=== PATIENT | male | born 1970 | race Caucasian/White ===

== ENCOUNTER 2016-03-29 17:25 | Observation (INO) | payer SELFPAY ==
[~2016-03-29] VITALS: Ht 154.9 cm; Wt 59.0 kg
[~2016-03-29 17:25] MED LIST: VENTAER INH
[2016-03-29 17:32] VITALS: BP 128/64; PULSE 87; RESP 22; TEMP 98.8; O2SAT 98
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
[2016-03-29] MEDS ORDERED: IOHEXOL 350 MG/ML 10 ML VIAL (for RAD DIAG) IV ONE (18:32)
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
[2016-03-29 19:14] VITALS: BP 143/72; PULSE 91; RESP 18; O2SAT 99
[2016-03-29 19:29] LABS: BASOPHIL % 0.3 % (0.0-2.0); EOSINOPHIL # 0.1 TH/MM3 (0-0.4); HEMO FLAGS DIFF FINAL; LYMPH % 29.5 % (9.0-44.0); LYMPHOCYTE # 1.9 TH/MM3 (1.0-4.8); MEAN CELL VOLUME 106.5 FL (80.0-100.0); MEAN CORPUSCULAR HEMOGLOBIN 37.5 PG (27.0-34.0); MEAN CORPUSCULAR HGB CONC 35.3 % (32.0-36.0); NEUT % 60.2 % (16.0-70.0); PLATELET COUNT 256 TH/MM3 (150-450); RED BLOOD COUNT 3.94 MIL/MM3 (4.50-5.90); WHITE BLOOD COUNT 6.6 TH/MM3 (4.0-11.0)
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
[2016-03-29 19:36] LABS: APTT (PATIENT) 27.8 SEC (24.3-30.1); INTERNATIONAL NORMALIZED RATIO 0.9 RATIO; PROTHROMBIN TIME - PATIENT 10.4 SEC (9.8-11.6)
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
[2016-03-29 19:55] LABS: ANION GAP 13 MEQ/L (5-15); AST (GOT) 88 U/L (15-37); BLOOD UREA NITROGEN 5 MG/DL (7-18); CHLORIDE 106 MEQ/L (98-107); GLOMERULAR FILTRATION RATE 106 ML/MIN (>89); POTASSIUM 3.3 MEQ/L (3.5-5.1); SODIUM (NA) 142 MEQ/L (136-145)
[2016-03-29 19:58] LABS: ALKALINE PHOSPHATASE 38 U/L (45-117); ALT (GPT) 71 U/L (12-78); TOTAL BILIRUBIN ADULT 0.4 MG/DL (0.2-1.0)
[2016-03-29] MEDS ORDERED: ACETAMINOPHEN 325 MG TAB PO ONE (20:00)
[2016-03-29] MEDS ORDERED: POTASSIUM CHLORIDE 20 MEQ CONTROLLED RELEASE TAB PO ONE (20:15)
[2016-03-29] MEDS: SODIUM CHLORIDE 0.9% FLUSH 5 ML FLUSH FLUSH SCH (20:22)
[2016-03-29] MEDS ORDERED: SODIUM CHLORIDE 0.9% FLUSH 5 ML FLUSH FLUSH PRN (20:30)
[2016-03-29] MEDS ORDERED: THIAMINE HCL 100 MG TAB PO ONE (20:30)
[2016-03-29] MEDS ORDERED: NALOXONE HCL 0.4 MG/ML AMP IV PRN (20:30)
[2016-03-29] MEDS ORDERED: KETOROLAC TROMETHAMINE 30 MG/ML (IVP) VIAL IV PUSH ONE (21:30)
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
[2016-03-30] VITALS: BP 150/76; PULSE 88; RESP 18; TEMP 98.4; O2SAT 98
[2016-03-30 01:00] VITALS: PULSE 94
[2016-03-30 04:30] VITALS: BP 119/71; PULSE 78; RESP 18; TEMP 98.7; O2SAT 97
[2016-03-30 05:39] LABS: HEMATOCRIT 39.4 % (39.0-51.0); MEAN CELL VOLUME 107.6 FL (80.0-100.0); MEAN CORPUSCULAR HGB CONC 35.3 % (32.0-36.0); PLATELET COUNT 225 TH/MM3 (150-450); RED BLOOD COUNT 3.66 MIL/MM3 (4.50-5.90); RED CELL DISTRIBUTION WIDTH 11.9 % (11.6-17.2); WHITE BLOOD COUNT 6.7 TH/MM3 (4.0-11.0)
[2016-03-30 05:50] LABS: HEMO FLAGS AUTO DIFF
[2016-03-30 06:21] LABS: POTASSIUM 4.3 MEQ/L (3.5-5.1)
[2016-03-30 07:38] LABS: EOSINOPHILS 1 % (0-4); NEUTROPHIL # MANUAL DIFF 3.4 TH/MM3 (1.8-7.7); POLYS (SEG NEUTROPHILS) 50 % (16-70); WBC DIFF SAMPLE 100
[2016-03-30 07:39] LABS: PLATELET ESTIMATE SMEAR NORMAL (NORMAL); PLATELET MORPHOLOGY NORMAL (NORMAL); SCAN/DIFF FINAL DIFF MANUAL
[2016-03-30 07:48] VITALS: BP 126/78; PULSE 92; RESP 16; TEMP 97.8; O2SAT 94
[2016-03-30 08:00] VITALS: PULSE 79
[2016-03-30] MEDS ORDERED: INFLUENZA VIRUS VACCINE (QUADRIVALENT) 0.5 ML SYR IM ONE (09:00)
[2016-03-30] MEDS ORDERED: THIAMINE HCL 100 MG TAB PO SCH (09:00)
[2016-03-30] MEDS: SODIUM CHLORIDE 0.9% FLUSH 5 ML FLUSH FLUSH SCH (09:05)
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
[2016-03-30] MEDS ORDERED: VENTAER INH (09:27)
--- NOTE | 2016-03-30 09:27 | HHI.DCPOC ---
Discharge Care Plan Diagnosis: (1) Closed head injury with brief loss of consciousness (2) Alcohol intoxication Goals to Promote Your Health * To prevent worsening of your condition and complications * To maintain your health at the optimal level Directions to Meet Your Goals Take your medications as prescribed Follow your dietary instruction Follow activity as directed Keep your appointments as scheduled Take your immunizations and boosters as scheduled If your symptoms worsen call your PCP, if no PCP go to Urgent Care Center or Emergency Room Smoking is Dangerous to Your Health. Avoid second hand smoke Call the 24-hour hour crisis hotline for domestic abuse at Love Garcia PA-C Mar 30, 2016 9:27 am
[2016-03-30] MEDS ORDERED: CHLO25CA2 PO (09:32)
[2016-03-30] MEDS ORDERED: THIA100T PO (09:32)
[2016-03-30] MEDS ORDERED: FOLI1TAB4 PO (09:32)
== END 2016-03-30 10:55 | disposition home or self-care (01) ==
LOC: NEPE 17:25 → NEDA 20:26 → NEPHCDU 21:51
PROVIDERS: ADMIT Hospitalist; ATTEND Hospitalist
DX: S01.01XA Laceration without foreign body of scalp, initial encounter (principal); S06.9X1A Unspecified intracranial injury with loss of consciousness of 30 minutes or less, initial encounter; F10.129 Alcohol abuse with intoxication, unspecified; E87.6 Hypokalemia; J45.909 Unspecified asthma, uncomplicated; F12.90 Cannabis use, unspecified, uncomplicated; Z72.0 Tobacco use; Z23 Encounter for immunization; Y90.8 Blood alcohol level of 240 mg/100 ml or more; W19.XXXA Unspecified fall, initial encounter
CPT/HCPCS: 12001; 70450; 71010; 72125; 72128; 72131; 73030; 74177; 80048; 80053; 80320; 85007; 85025; 85027; 85610; 85730; 90686; 99285; G0378; J1885; Q9967; Q2038

== ENCOUNTER 2016-04-12 12:15 | Emergency (ER) | payer SELFPAY ==
[~2016-04-12] VITALS: Ht 157.5 cm; Wt 60.0 kg
[~2016-04-12 12:15] MED LIST changes: +CHLO25CA2 PO; +FOLI1TAB4 PO; +THIA100T PO
[2016-04-12 12:17] VITALS: BP 141/80; PULSE 87; RESP 15; TEMP 97.8; O2SAT 97
--- NOTE | 2016-04-12 12:33 | PD ---
HPI Chief Complaint: Wound/Suture/Staple Re-Check Time Seen by Provider: 12:32 Travel History International Travel<30 days: No Contact w/Intl Traveler<30days: No Traveled to known affect area: No History of Present Illness HPI 46-year-old male presents to the emergency department requesting removals of tables to his posterior scalp. They've been there for 2 weeks. He denies fever , chills, nausea, vomiting. Denies drainage from the wound site. No other medical complaints. Allergies to penicillin. No other modifying factors or associated signs and symptoms. PFSH Past Medical History Asthma: Yes Diminished Hearing: No Social History Alcohol Use: Yes (4 BEERS A DAY) Tobacco Use: Yes (1 PACK PER WEEK) Substance Use: No Allergies-Medications (Allergen,Severity, Reaction): Coded Allergies: Penicillin (Verified Allergy, Mild, 04/12/16) Reported Meds & Prescriptions Reported Meds & Active Scripts Active Folate (Folic Acid) 1 Mg Tab 1 Mg PO DAILY Thiamine (Thiamine HCl) 100 Mg Tab 100 Mg PO DAILY Chlordiazepoxide (Chlordiazepoxide HCl) 25 Mg Cap 25 Mg PO TID PRN Ventolin Hfa 18 GM Inh (Albuterol Sulfate) 90 Mcg/Act Aer 2 Puff INH Q4-6H PRN Review of Systems Except as stated in HPI: all other systems reviewed are Neg Physical Exam Narrative GENERAL: Well-nourished, well-developed male patient, in no acute distress SKIN: Warm and dry. Laceration to posterior scalp is well approximated with willa intact; without erythema, edema, drainage. No signs of infection. HEAD: Atraumatic. Normocephalic. EYES: Pupils equal and round. No scleral icterus. No injection or drainage. ENT: Mucosa pink and moist. Airway patent. NECK: Trachea midline. CARDIOVASCULAR: Regular rate. RESPIRATORY: No accessory muscle use. GASTROINTESTINAL: Flat. MUSCULOSKELETAL: No obvious deformities. No clubbing. No cyanosis. No edema. NEUROLOGICAL: Awake and alert. Oriented 3. No obvious cranial nerve deficits. Motor grossly within normal limits. Normal speech. PSYCHIATRIC: Appropriate mood and affect; insight and judgment normal. Data Data Last Documented VS Vital Signs Date Time Temp Pulse Resp B/P Pulse Ox O2 Delivery O2 Flow Rate FiO2 04/12/16 12:17 97.8 87 15 141/80 97 MDM Medical Decision Making Medical Screen Exam Complete: Yes Emergency Medical Condition: Yes Medical Record Reviewed: Yes Differential Diagnosis Medical clearance, wound recheck, staple removal Narrative Course 46-year-old male presents for staple removal to his posterior scalp. Wound is well approximated and willa intact. No signs of infection. Patient is afebrile and nontoxic-appearing. He denies fever, chills, nausea, vomiting. Willa removed. Patient tolerated well. Patient verbalizes understanding and agreement with treatment plan. Patient is medically cleared and stable for discharge. Discussed reasons to return to the emergency department. Instructed patient to follow up with primary care provider. Patient agrees with treatment plan. The patients vital signs are stable and the patient is stable for outpatient follow-up and treatment. Patient discharged home, stable and in no acute distress. Diagnosis Primary Impression: Encounter for staple removal Referrals: Primary Care Physician Patient Instructions: General Instructions Departure Forms: Tests/Procedures, Work Release Enter return to work date: Apr 13, 2016 Additional Instructions: Ibuprofen or Tylenol as directed and as needed for pain/inflammation Follow-up with primary care provider Return to the emergency department immediately with worsening of symptoms Med/Other Pt SpecificInfo: No Change to Meds, No Meds Exist/No RX given Disposition: DISCHARGE HOME Condition: Stable Sarah Black Apr 12, 2016 12:33
== END 2016-04-12 12:48 | disposition home or self-care (01) ==
LOC: NEPB 12:15
DX: S01.01XD Laceration without foreign body of scalp, subsequent encounter (principal); X58.XXXD Exposure to other specified factors, subsequent encounter; Z48.02 Encounter for removal of sutures
CPT/HCPCS: 99281; 99282